=== PATIENT | male | born 1940 | race Caucasian/White ===

== ENCOUNTER → 2018-06-24 | Outpatient (CLI) | payer OTHER, MEDICARE | LOC: RAD 09:37 | DX: R06.02 Shortness of breath (principal); R68.83 Chills (without fever) ==

== ENCOUNTER → 2018-07-01 | Outpatient (CLI) | payer OTHER, MEDICARE | LOC: CAT 15:10 | DX: J84.10 Pulmonary fibrosis, unspecified (principal); I71.2 Thoracic aortic aneurysm, without rupture; I35.8 Other nonrheumatic aortic valve disorders; J98.4 Other disorders of lung; R91.1 Solitary pulmonary nodule ==

== ENCOUNTER → 2018-08-06 | Outpatient (CLI) | payer OTHER, MEDICARE ==
[~2018-08-06] VITALS: Ht 185.4 cm; Wt 99.8 kg
[~2018-08-06] MED LIST: COZAAR 25 MG TA25 M1 PO; HYDROCHLOROTHIA50 MG PO; LIPITOR 20 MG T20 M1 PO; PRESERVISION A1 EAC2 PO; TOPROL XL100 MG PO; TRELEGY ELLIPT1 EACH INH
[2018-08-06 07:16] VITALS: BP 117/78
[2018-08-06 07:26] LABS: HEMATOCRIT 40.7 % (42.0-52.0); HEMOGLOBIN 13.8 gm/dL (14.0-18.0); MCH 29.7 pg (26.0-34.0); MCHC 33.9 g/dL (28.0-37.0); MCV 87.8 fL (80.0-100.0); RBC 4.64 mil/uL (4.50-6.00); RDW 13.4 % (10.5-14.5); WBC 7.7 thou/uL (4.0-11.0)
[2018-08-06 07:36] LABS: CALCIUM 9.1 mg/dL (8.5-10.1); CREATININE 1.1 mg/dL (0.7-1.3); POTASSIUM 3.5 mmol/L (3.5-5.1)
--- NOTE | 2018-08-06 08:17 | EKG ---
[address] [place] [address] ELECTROCARDIOGRAM REPORT Name: JUNI BUENO Room #: [facility] [id number] ������������������ Admission: 08/06/18 ������������������ Attend Phys: Jose Barnard MD Discharge: ������������������ Date of : 44 Report #: [id number] ����������������������������������������������������������������� [id number] THIS REPORT FOR: //name// [facility] Test Date: 2018-08-06 Test Time: 07:11:23 Pat Name: JUNI BUENO Department: Room: Gender: M Reporter: Jaswant DUARTE : 1940 Requested By: Jose Barnard Order Number: [id number] MD: Yuriy Medrano Measurements Intervals [place] Rate: 59 P: 11 IL: 186 QRS: -51 QRSD: 137 T: -8 QT: 459 QTc: 455 Interpretive Statements Sinus rhythm Right bundle branch block inferior infarct, age indeterminate No previous ECG available for comparison Electronically Signed On 08-06-2018 8:17:17 [employer] DEVELOPER by Yuriy Medrano [email or web address] ��������������������������������������������� <ELECTRONICALLY SIGNED> ���������������������������������������� By: Yuriy Medrano MD, [facility] ��������������������������������������������� 08/06/18 0817 07 0 Yuriy Medrano MD, FACC /EPI
--- NOTE | 2018-08-06 15:28 | NUR ---
pt ambulated in hallway without difficulty. He had already voided per urinal.
--- NOTE | 2018-08-06 16:57 | CATHLAB ---
[facility] [place] [address] INVASIVE PROCEDURE REPORT Name: MYLESJUNI PATELN Room #: REG [facility]#: [id number] ������������� Admission: 08/06/18 ������������� Attend Phys: Jose Barnard MD Discharge: ��� ������������� ��� Date of : 44 Date of Service: 08/06/18 1657 �� Report #: [id number] �������� ��������������������������������������������[id number] THIS REPORT FOR: //name// APPROVED REPORT Study performed: 08/06/2018 10:17:44 Patient Details Patient Status: Out-Patient Room #: The patient is a 78 year-old male Event Personnel Jose Barnard International Account Executive, Angelique Alicia RTR, REGISTERED HEALTH NURSE Monitor, Deangelo Bender Penny, Wes RN Procedures Performed Art Access - R radial artery Art Access - R femoral artery* Left Heart Cath w/or w/o Coronaries [id number] [facility] [address] Initial Mod Sed Same Phys/QHP Gr5y [id number] 74584 Mod Sed Same Phys/QHP Ea [id number] Hemostasis with Hemoband Hemostasis with Manual pressure Indication Pre-op clearance, This is a preop evaluation for ascending aortic aneurysm repair. Risk Factors Hypercholesterolemia, Hypertension Procedure Narrative The Right Wrist^ was infiltrated with 1% Lidocaine subcutaneous anesthesia. A 6FR TRANSRADIAL GLIDESHEATH W/ NEEDLE #[id number] sheath was inserted into the RIGHT RADIAL ARTERY^. Coronary angiography was performed using coronary diagnostic catheters. The right coronary system was accessed and visualized with a 4FR AL1 #[id number] catheter. The left coronary system was accessed and visualized with a 5FR JL 3.5 #[id number] catheter. The left ventricle was accessed and visualized with a 4FR ANGLED PIGTAIL catheter. Left ventricular/Aortic Valve gradient assessed via catheter pullback. Left ventriculogram was performed in 30 degree projection. Closure device was deployed with a Fr VASC BAND R 24CM #[id number]. The patient tolerated the procedure well and there were no complications associated with the procedure. Unable to access RCA through right radial artery approach due to tortuosity of the right subclavian artery. Accessed right femoral artery with 4FR sheath. Able to access RCA with 4Fr. AL1 catheter. [address] [address] [place] [address] INVASIVE PROCEDURE REPORT Name: BUENOJUNI Room #: REG CL [facility]#: [id number] ������������� Admission: 08/06/18 ������������� Attend Phys: Jose Barnard MD Discharge: ��� ������������� ��� Date of : 44 Date of Service: 08/06/18 1657 �� Report #: [id number] �������� ��������������������������������������������[id number] Intraoperative Conscious Sedation Sedation start time: 10:17 Case end Time: 11:13 Fentanyl 50 mcg Versed 1.5 mg Fluoro Time: 16.50 minutes Dose: DAP 98857.30 cGycm2 1402 mGy Contrast Type and Amount: Omnipaque 125 ml Coronary Angiography The patient's coronary anatomy is right dominant. Diagnostic Cath Left Main This is a large caliber vessel, patent with no flow-limiting lesions. LAD This is a moderate to large caliber vessel, traversing the anterior wall and wrapping around the apex. This vessel is patent with no flow-limiting lesions. Minimal disease is noted in the midsegment. Diagonal 1 This is a moderate size caliber vessel, patent with no flow-limiting lesions. Circumflex This is a moderate to large caliber vessel, dominant as it supplies the left PDA. This vessel is widely patent, with no flow-limiting lesions. OM1 This is a moderate size caliber vessel, patent with no flow-limiting lesions. OM2 This is a moderate size caliber vessel, patent with no flow-limiting lesions. OM3 This is a moderate size caliber vessel, patent with no flow-limiting lesions. L PDA This is a moderate size caliber vessel, patent with no flow-limiting lesions. Right Coronary This is a nondominant vessel, patent with no flow-limiting lesions. Left Ventriculography The left ventricle is normal in size with normal contractility. The left ventricular ejection fraction is estimated to be 60%. The aortic valve is calcified with restricted mobility. Hemodynamics The aortic pressure is 107/67 mmHg with a mean of 85 mmHg. The left ventricular pressure is 129/13 mmHg with a mean of mmHg. The left ventricular end diastolic pressure is 24 mmHg. [facility] [address] [address] INVASIVE PROCEDURE REPORT Name: JUNI BUENO Room #: REG CL [facility]#: [id number] ������������� Admission: 08/06/18 ������������� Attend Phys: Jose Barnard MD Discharge: ��� ������������� ��� Date of : 44 Date of Service: 08/06/18 1657 �� Report #: [id number] �������� ��������������������������������������������[id number] Conclusion 1. Angiographically normal coronary arteries, minimal disease noted in the mid LAD. 2. Left dominant system. 3. Normal LV systolic function. 4. Ascending aortic aneurysm. 5. Calcified aortic valve with restricted excursion. ��������������������������������������������� <ELECTRONICALLY SIGNED> ���������������������������������������� By: Jose Barnard MD ��������������������������������������������� 08/06/181656 56 56 Jose Barnard MD /INF
== END | disposition home or self-care (01) ==
LOC: CATH 06:40
PROVIDERS: Internal Medicine Cardiovascular Disease
DX: I25.10 Atherosclerotic heart disease of native coronary artery without angina pectoris (principal); I10 Essential (primary) hypertension; E78.00 Pure hypercholesterolemia, unspecified; I71.4 Abdominal aortic aneurysm, without rupture; J45.909 Unspecified asthma, uncomplicated; I45.10 Unspecified right bundle-branch block; L50.1 Idiopathic urticaria